=== PATIENT | male | born 1960 | race Two or more races ===

== ENCOUNTER 2018-04-21 23:37 | Inpatient (IN) | payer OTHER ==
[~2018-04-21] VITALS: Ht 172.7 cm; Wt 83.5 kg
[2018-04-22] VITALS (8 sets, daily range): BP systolic 152–187; BP diastolic 89–101
[2018-04-22 00:23] LABS: APPEARANCE,URINE CLEAR; BILIRUBIN, URINE NEGATIVE (NEGATIVE); COLOR,URINE PALE YELLOW; GLUCOSE, URINE (UA) NEGATIVE (NEGATIVE); KETONES,URINE NEGATIVE (NEGATIVE); LEUKOCYTE ESTERASE ,URINE NEGATIVE (NEGATIVE); NITRITE,URINE NEGATIVE (NEGATIVE); PH,URINE 7 (4.5-8.0); PROTEIN,URINE 1+ (NEGATIVE); UROBILINOGEN,URINE NORMAL MG/DL (0.0-1.0)
[2018-04-22 00:24] LABS: BASOPHILS % (AUTO) 1.4 % (0.0-2.0); EOSINOPHILS % (AUTO) 0.9 % (0.0-3.0); HEMATOCRIT 44.8 % (42.0-52.0); HEMOGLOBIN 15.9 G/DL (14.2-18.0); LYMPHOCYTES % (AUTO) 11.3 % (20.0-45.0); MEAN CORPUSCULAR VOLUME 91 FL (80-99); MONOCYTES % (AUTO) 6.4 % (1.0-10.0); PLATELET COUNT 218 K/UL (150-450); RED BLOOD COUNT 4.93 M/UL (4.70-6.10); RED CELL DISTRIBUTION WIDTH 11.4 % (11.6-14.8); WHITE BLOOD COUNT 9.2 K/UL (4.8-10.8)
[2018-04-22 00:34] LABS: ANION GAP 7 mmol/L (5-15); BLOOD UREA NITROGEN 16 mg/dL (7-18); CALCIUM 8.8 MG/DL (8.5-10.1); CARBON DIOXIDE 28 MMOL/L (21-32); CHLORIDE 102 MMOL/L (98-107); CREATININE 1.5 MG/DL (0.55-1.30); SODIUM 137 MMOL/L (136-145)
[2018-04-22 00:40] LABS: ALANINE AMINOTRANSFERASE 36 U/L (12-78); ALBUMIN 3.9 G/DL (3.4-5.0); ALBUMIN/GLOBULIN RATIO 1.1 (1.0-2.7); ALKALINE PHOSPHATASE 84 U/L (46-116); ASPARTATE AMINO TRANSFERASE 23 U/L (15-37); BILIRUBIN,TOTAL 0.3 MG/DL (0.2-1.0)
[2018-04-22] MEDS ORDERED: Morphine Sulfate 4mg/ml Inj IVP ONE ×2 (00:45)
--- NOTE | 2018-04-22 03:40 | Diagnostic Imaging Report ---
EXAM: CT Abdomen and Pelvis Without Intravenous Contrast CLINICAL HISTORY: PAIN TECHNIQUE: Axial computed tomography images of the abdomen and pelvis without intravenous contrast. CTDI is 16 mGy and DLP is 484 mGy-cm. One or more of the following dose reduction techniques were used: automated exposure control, adjustment of the mA and/or kV according to patient size, use of iterative reconstruction technique. COMPARISON: No relevant prior studies available. FINDINGS: Lung bases: No acute or suspicious findings. No mass. No consolidation. ABDOMEN: Liver: No acute or suspicious findings. Gallbladder and bile ducts: Cholelithiasis. No ductal dilation. Pancreas: No acute or suspicious findings. No ductal dilation. Spleen: No acute or suspicious findings. No splenomegaly. Adrenals: No acute or suspicious findings. No mass. Kidneys and ureters: No acute or suspicious findings. No obstructing stones. No hydronephrosis. Stomach and bowel: Dilatation around a right lower quadrant anastomosis. Borderline dilated left abdominal small bowel loops with possible mild wall thickening. PELVIS: Appendix: No findings to suggest acute appendicitis. Bladder: No acute or suspicious findings. No stones. Reproductive: Unremarkable as visualized. ABDOMEN and PELVIS: Intraperitoneal space: No acute or suspicious findings. No free air. No significant fluid collection. Bones/joints: No acute fracture. No dislocation. Soft tissues: Large fat-containing inguinal hernia. Vasculature: No acute or suspicious findings. No abdominal aortic aneurysm. Lymph nodes: No acute or suspicious findings. No enlarged lymph nodes. IMPRESSION: Dilatation around a right lower quadrant anastomosis. Borderline dilated left abdominal small bowel loops with possible mild wall thickening. Cannot exclude obstruction and/or a mild enteritis. Evaluation limited without contrast.
--- NOTE | 2018-04-22 05:24 | Emergency Room Report ---
History of Present Illness General Chief Complaint: Abdominal Pain Source: Patient Present Illness HPI Patient presents with complaint of mid abdominal pain Nausea vomiting ongoing for the past one and a 2:30 days Denies any diarrhea denies any chest pain or shortness of breath patient reports previous history of gastric ulcer bleeding Blood transfusions [place] out of [place] Pain is 7 out of 10 denies any change with position Patient has had previous inguinal surgery Allergies: Coded Allergies: No Known Allergies (Unverified , 04/21/18) Patient History Past Medical History: see triage record Pertinent Family History: none Reviewed Nursing Documentation: PMH: Agreed; PSxH: Agreed Nursing Documentation-PMH Hx Gastrointestinal Problems: Yes - ulcers, hernia Review of Systems All Other Systems: negative except mentioned in HPI Physical Exam Vital Signs Date Time Temp Pulse Resp B/P (MAP) Pulse Ox O2 Delivery O2 Flow Rate FiO2 04/21/18 23:44 98.2 69 18 204/93 98 Room Air 98.2 Sp02 EP Interpretation: reviewed, normal General Appearance: mild distress - In acute pain Head: normocephalic, atraumatic Eyes: bilateral eye PERRL, bilateral eye EOMI ENT: no angioedema, dry mucus membranes Neck: supple, thyroid normal Respiratory: lungs clear Cardiovascular #1: regular rate, rhythm, no edema Gastrointestinal: other - Tender epigastric region also above the umbilical region mid abdominal area no lower abdominal rebound Genitourinary: no CVA tenderness Musculoskeletal: normal inspection, back normal Neurologic: alert, oriented x3, responsive Skin: normal color, no rash, warm/dry Lymphatic: no adenopathy Medical Decision Making Diagnostic Impression: Primary Impression: Bowel obstruction ER Course With the history exam and presentation, multiple differentials considered, including but not limited to appendicitis, gastritis, cholecystitis, diverticulitis Patient's CT read by radiology as Possible obstruction Patient's blood work otherwise at baseline levels after 2 rounds of morphine medication patient still complaining of pain Therefore NG tube was placed patient require further general surgery consultation and inpatient care Labs Test 04/21/18 00:05 White Blood Count 9.2 K/UL (4.8-10.8) Red Blood Count 4.93 M/UL (4.70-6.10) Hemoglobin 15.9 G/DL (14.2-18.0) Hematocrit 44.8 % (42.0-52.0) Mean Corpuscular Volume 91 FL (80-99) Mean Corpuscular Hemoglobin 32.3 PG (27.0-31.0) Mean Corpuscular Hemoglobin Concent 35.5 G/DL (32.0-36.0) Red Cell Distribution Width 11.4 % (11.6-14.8) Platelet Count 218 K/UL (150-450) Mean Platelet Volume 7.6 FL (6.5-10.1) Neutrophils (%) (Auto) 80.0 % (45.0-75.0) Lymphocytes (%) (Auto) 11.3 % (20.0-45.0) Monocytes (%) (Auto) 6.4 % (1.0-10.0) Eosinophils (%) (Auto) 0.9 % (0.0-3.0) Basophils (%) (Auto) 1.4 % (0.0-2.0) Urine Color Pale yellow Urine Appearance Clear Urine pH 7 (4.5-8.0) Urine Specific [place] 1.010 (1.005-1.035) Urine Protein 1+ (NEGATIVE) Urine Glucose (UA) Negative (NEGATIVE) Urine Ketones Negative (NEGATIVE) Urine Occult Blood Negative (NEGATIVE) Urine Nitrite Negative (NEGATIVE) Urine Bilirubin Negative (NEGATIVE) Urine Urobilinogen Normal MG/DL (0.0-1.0) Urine Leukocyte Esterase Negative (NEGATIVE) Urine RBC 0-2 /HPF (0 - 0) Urine WBC 2-4 /HPF (0 - 0) Urine Squamous Epithelial Cells Occasional /LPF Urine Bacteria Occasional /HPF (NONE) Sodium Level 137 MMOL/L (136-145) Potassium Level 4.0 MMOL/L (3.5-5.1) Chloride Level 102 MMOL/L (98-107) Carbon Dioxide Level 28 MMOL/L (21-32) Anion Gap 7 mmol/L (5-15) Blood Urea Nitrogen 16 mg/dL (7-18) Creatinine 1.5 MG/DL (0.55-1.30) Estimat Glomerular Filtration Rate 48.2 mL/min (>60) Glucose Level 165 MG/DL (74-106) Calcium Level 8.8 MG/DL (8.5-10.1) Total Bilirubin 0.3 MG/DL (0.2-1.0) Aspartate Amino Transf (AST/SGOT) 23 U/L (15-37) Alanine Aminotransferase (ALT/SGPT) 36 U/L (12-78) Alkaline Phosphatase 84 U/L (46-116) Total Protein 7.5 G/DL (6.4-8.2) Albumin 3.9 G/DL (3.4-5.0) Globulin 3.6 g/dL Albumin/Globulin Ratio 1.1 (1.0-2.7) Lipase 136 U/L (73-393) Rhythm Strip Diag. Results EP Interpretation: yes Rate: 77 Rhythm: NSR, no PVC's, no ectopy CT/MRI/US Diagnostic Results CT/MRI/US Diagnostic Results : Impression CT abdomen pelvisIMPRESSION: Dilatation around a right lower quadrant anastomosis. Borderline dilated left abdominal small bowel loopswith possible mild wall thickening. Cannot exclude obstruction and/or a mild enteritis. Evaluation limited without contrast. Last Vital Signs Date Time Temp Pulse Resp B/P (MAP) Pulse Ox O2 Delivery O2 Flow Rate FiO2 04/22/18 01:21 98.2 74 19 177/99 95 Room Air 98.2 Status: improved Disposition: ADMITTED INPATIENT Condition: Serious Referrals: NOT CHOSEN IPA/,REFERRING (PCP) Berny Castelan DO Apr 22, 2018 05:24
[2018-04-22] MEDS ORDERED: Acetaminophen 650 MG SUPP RECTAL PRN ×2 (06:15)
[2018-04-22] MEDS ORDERED: Morphine Sulfate 4mg/ml Inj IVP PRN (06:15)
[2018-04-22] MEDS ORDERED: Potassium Chloride 10 MEQ in D5 1/2NS 1,000 ML IV SCH (06:15)
--- NOTE | 2018-04-22 06:30 | Diagnostic Imaging Report ---
PORTABLE AP UPRIGHT CHEST/ABDOMEN X-RAY: HISTORY: 57-year-old male status post NG tube placement. COMPARISON: Abdomen and pelvis CT without contrast earlier same date. FINDINGS: Images are limited by technique and patient body habitus. Allowing for this, the NG tube extends into and terminates in the region of the gastric fundus, with proximal port at the level of the GE junction. The imaged lungs are grossly clear. Bowel gas pattern is grossly unremarkable. All IMPRESSION: NG tube extends into and terminates in the region of the gastric fundus. [employer] 04/22/18 06:34 Call Doctor Regarding Other, called Dr. Dugan on 04/22 06:34 (-07:00)
[2018-04-22] MEDS ORDERED: Pantoprazole Inj IV SCH (09:00)
[2018-04-22] MEDS: D5NS 1,000 ML IV SCH ×2 (10:38→14:30)
--- NOTE | 2018-04-22 12:42 | Consultation ---
History of Present Illness General Date patient seen: Apr 22, 2018 Chief Complaint: Abdominal Pain Reason for Consultation: sbo Present Illness HPI 57 year old male presented with acute onset of worsening generalized abdominal pain with nausea and emesis. States that he is here on vacation with family and had two large meals yesterday. Later in evening developed abdominal discomfort followed by nausea and emesis. As pain worsened he came to ED for evaluation. States he has had similar episode in the past but not as severe. Since admission states pain improved and no longer n/v/f/c. he is not comfortable. had BM and passed flatus today. CT in ED with possible sbo. of note, patient has history of left incarcerated/strangulated inguinal hernia requiring urgent surgery with bowel resection. he also had incarcerated right inguinal hernia requiring surgery without bowel resection. Allergies: Coded Allergies: No Known Allergies (Unverified , 04/21/18) Patient History History Provided By: Patient, Medical Record, PMD Healthcare decision maker Resuscitation status Full Code Advanced Directive on File Past Medical/Surgical History Past Medical/Surgical History: (1) Bowel obstruction Review of Systems All Other Systems: negative except mentioned in HPI Physical Exam General Appearance: no apparent distress, alert Lines, tubes and drains: peripheral HEENT: atraumatic, anicteric, mucous membranes moist Neck: normal inspection Respiratory/Chest: lungs clear, normal breath sounds, no respiratory distress, no accessory muscle use Cardiovascular/Chest: normal peripheral pulses, normal rate Abdomen: non tender, soft, no organomegaly, no mass, abnormal bowel sounds Extremities: normal range of motion, non-tender Skin Exam: normal pigmentation, warm/dry Neurologic: alert, oriented x 3 Last 24 Hour Vital Signs Date Time Temp Pulse Resp B/P (MAP) Pulse Ox O2 Delivery O2 Flow Rate FiO2 04/22/18 09:24 98.3 63 16 166/74 99 Room Air 208.9 04/22/18 08:57 98.3 04/22/18 07:00 98.3 63 16 174/93 97 Room Air 98.3 04/22/18 05:00 63 16 165/89 97 04/22/18 04:30 98.3 61 17 178/93 97 Room Air 98.3 04/22/18 03:30 98.3 66 16 183/101 65 Room Air 98.3 04/22/18 02:30 98.3 63 17 187/91 96 Room Air 98.3 04/22/18 01:21 98.2 74 19 177/99 95 Room Air 98.2 04/21/18 23:44 98.2 69 18 204/93 98 Room Air 98.2 Intake and Output 04/21/18 04/22/18 19:00 07:00 Intake Total 1000 ml Balance 1000 ml Intake IV Total 1000 ml # Voids 2 Height (Feet): 5 Height (Inches): 8.00 Weight (Pounds): 184 Medications Current Medications Medications (Trade) Dose Ordered Sig/Mason Route PRN Reason Start Time Stop Time Status Last Admin Dose Admin Acetaminophen (Tylenol) 650 mg Q4H PRN ORAL Mild Pain (Pain Scale 1-3) 04/22/18 06:15 05/22/18 06:14 Acetaminophen (Tylenol) 650 mg Q4H PRN RECTAL Mild Pain (Pain Scale 1-3) 04/22/18 06:15 05/22/18 06:14 Dextrose (Dextrose 50%) 25 ml STAT PRN IV Hypoglycemia 04/22/18 06:15 05/22/18 06:14 Dextrose (Dextrose 50%) 50 ml STAT PRN IV Hypoglycemia 04/22/18 06:15 05/22/18 06:14 Dextrose/Sodium Chloride 1,000 ml @ 125 mls/hr Q8H IV 04/22/18 06:30 05/22/18 06:29 04/22/18 10:38 Morphine Sulfate (Morphine Sulfate) 4 mg Q4H PRN IVP Severe Pain (Pain Scale 7-10) 04/22/18 06:15 04/29/18 06:14 04/22/18 08:57 Ondansetron HCl (Zofran) 4 mg Q6H PRN IVP Nausea & Vomiting 04/22/18 06:15 05/22/18 06:14 Pantoprazole (Protonix) 40 mg DAILY IV 04/22/18 09:00 05/22/18 08:59 04/22/18 10:40 Assessment/Plan Problem List: (1) Bowel obstruction Assessment & Plan: 57M with sbo likely from adhesions. afebrile, HD stable, labs okay. since admission pain resolved and states bowel function has returned. -clear liquids -will advance diet himself slowly over the next few days -is here on vacation and wants to leave hospital [place]. given symptoms resolved , exam benign, bowel function now and labs okay, can d/c from surgical standpoint. if worsens, needs to return br[place]. otherwise slowly advance diet over the next few days and follow up with PCP once he is back home. thank you for this consultation. ICD Codes: K56.609 - Unspecified intestinal obstruction, unspecified as to partial versus complete obstruction SNOMED: [id number] Qualifiers: Status: stable Conor Reese Apr 22, 2018 12:42
[2018-04-22] MEDS ORDERED: D5NS 1000ml IV ONE (13:59)
--- NOTE | 2018-04-28 08:30 | Discharge Summary ---
DATE OF ADMISSION: 04/22/2018 DATE OF DISCHARGE: 04/22/2018 CHIEF COMPLAINT: Abdominal pain. HOSPITAL COURSE: This is a 57-year-old male with significant past medical history presented from vacation to [facility] because of worsening generalized abdominal pain with nausea and vomiting. The patient states that he was on vacation and had two larger meals yesterday and after which she started having significant abdominal pain, at which point, he has come to ED for further evaluation and treatment. The patient said that he has had this discomfort in the past, but has been now severe and sometimes . He had a CT done in the ED, which showed a possible small bowel obstruction. The patient did have a history of incarcerated strangulated inguinal hernia requiring urgent surgery with bowel resection in the past. For this, the patient had a general surgery consulted . The patient was medically treated to NPO and at which point, the patient was able to pass a bowel movement with no other surgical intervention needed. The patient is helping return back to baseline and discharged back home. On day of discharge, temp 98.2, heart rate 63, respirations 20, and blood pressure 152/91. GENERAL: Awake, alert, and in no apparent distress. HEENT: PERRLA. CARDIOVASCULAR: S1 and S2. Regular rate and rhythm. RESPIRATORY: S1 and S2. Lungs clear breath sounds bilaterally. No wheezing, rhonchi, or rales. ABDOMEN: Soft, nontender, and nondistended. EXTREMITIES: Lower extremities, no edema noted. DIAGNOSIS: Bowel obstruction. PLAN: The patient was seen by surgery. Medically cleared to be discharged back home. Laboratory data all within normal limits. The patient is able to pass a bowel movement on his own. The patient was educated on advancing diet slowly and to return if any other symptoms persist or return. Víctor Pro MD DR: PAOLA JOB#: [id number] CC: BORIS
== END 2018-04-22 14:00 | disposition home or self-care (01) | DRG 390 ==
LOC: EMR 23:55 → 3E 04-22 05:55 → EDBEDREQ 04-22 06:46
DX: K56.50 Intestinal adhesions [bands], unspecified as to partial versus complete obstruction (principal); Z98.890 Other specified postprocedural states
CPT/HCPCS: 36415; 74018; 74176; 80053; 81003; 83690; 85025; 99285; J2405